=== PATIENT | female | born 1985 | race Caucasian/White ===

== ENCOUNTER 2023-03-31 15:17 | Emergency (ER) | payer MEDICAID ==
[~2023-03-31] VITALS: Ht 152.4 cm; Wt 49.9 kg
[2023-03-31 15:17] VITALS: BP 154/105; PULSE 86; RESP 18; TEMP 98.3; O2SAT 100
[2023-03-31] MEDS ORDERED: TORADOL IV STA (15:39)
[2023-03-31] MEDS ORDERED: TORADOL ONE (15:43)
[2023-03-31 15:44] LABS: BASOPHIL % 0.1 % (0.0-0.2); EOSINOPHIL # 0.1 10^3/uL (0.0-0.2); EOSINOPHIL % 0.8 % (0.0-5.0); HEMATOCRIT(ML) 52.3 % (36.0-46.0); HEMOGLOBIN 17.2 g/dL (12.0-15.0); LYMPHOCYTES # 4.62 10^3/uL1 (1.0-4.8); LYMPHOCYTES % 32.1 % (24.0-44.0); MEAN CORP HGB 28.5 pg (26-34); MEAN CORP HGB CONCENTRATION 32.9 g/dL (33-36.5); MEAN CORP VOLUME 86.6 fL (78-100); MONOCYTES % 6.9 % (5.0-12.0); NEUTROPHIL # 8.6 10^3/uL (1.8-7.7); NEUTROPHILS % 59.8 % (41.0-85.0); PLATELET COUNT 432 10^3/uL (150-400); RED BLOOD CELL 6.04 10^6/uL (4.00-5.20); RED CELL DISTRIBUTION WIDTH 12.5 % (11.5-14.5); WHITE BLOOD CELL 14.4 10^3/uL (4.5-11.0)
[2023-03-31 15:50] LABS: +ADD MANUAL DIFF(NO CHRG) NO
[2023-03-31 16:03] LABS: ALANINE AMINOTRANSFERASE(ML) 14 U/L (12-78); ALBUMIN(ML) 4.3 g/dL (3.4-5.0); ALBUMIN/GLOBULIN RATIO 1.048; ALKALINE PHOSPHATASE 117 U/L (50-136); ANION GAP 14.2; ASPARTATE AMINO TRANSFERASE 29 U/L (0-35); CALCIUM 9.4 mg/dL (8.4-10.5); CARBON DIOXIDE 22.9 mmol/L (20.0-32); EST GFR, NON-AA 62.7 (>/=60); GLUCOSE 109 mg/dL (74-106); POTASSIUM 4.1 mmol/L (3.6-5.2); SODIUM 136 mmol/L (132-145)
[2023-03-31 16:06] LABS: TROPONIN I HIGH SENSITIVITY < 4 ng/L (0-50)
[2023-03-31 16:30] LABS: BILIRUBIN,URINE NEGATIVE (NEGATIVE); LEUKOCYTE ESTERASE ,URINE NEGATIVE (NEGATIVE); NITRATE,URINE NEGATIVE (NEGATIVE); PH,URINE 5.5 (4.5-8.0); UROBILINOGEN,URINE 0.2 E.U./dL (0.2)
[2023-03-31 16:35] LABS: APPEARANCE,URINE CLOUDY; UA COLOR YELLOW; UR MDMA (ECSTASY) SCRN NEGATIVE (c/o300ng/mL); UR METHADONE SCRN NEGATIVE (c/o300ng/mL); UR PHENCYCLIDINE (PCP) SCRN NEGATIVE (c/o 25ng/mL)
[2023-03-31 16:36] LABS: UAMPH METHAMP(SCRN) PRESUMPTIVE POSITIVE (co1000ng/mL); UR OPIATE SCRN PRESUMPTIVE POSITIVE (c/o300ng/mL); UR TETRAHYDROCANNABINOL SCRN PRESUMPTIVE POSITIVE (c/o 50ng/mL)
[2023-03-31] MEDS ORDERED: OFIRMEV 1000 MG/100 ML 100 ML IV ONE (17:04)
[2023-03-31] MEDS ORDERED: OFIRMEV 1000 MG/100 ML IV SCH (17:30)
[2023-03-31 17:51] VITALS: BP 105/53; PULSE 108; RESP 18; O2SAT 100
== END 2023-03-31 17:51 | disposition home or self-care (01) ==
LOC: ER 15:17
DX: K85.90 Acute pancreatitis without necrosis or infection, unspecified (principal); K59.00 Constipation, unspecified; F17.200 Nicotine dependence, unspecified, uncomplicated; Z90.49 Acquired absence of other specified parts of digestive tract
CPT/HCPCS: 99285; 74177; 96374; 96375; 87086; 74021; 80053; 85025; 36415; 84484; 83605; 80307; 83690; 93005; 81001; J0131; J1885; Q9965